=== PATIENT | female | born 1975 | race Caucasian/White ===

== ENCOUNTER → 2018-10-20 | Outpatient (CLI) | payer OTHER ==
[~2018-10-20] MED LIST: AMIT10TA2 OR; CELE1CAP4 OR; FLEXERIL PO; MAXA10TA17 OR; MULTIVIT OR; NASAL SPRAY; SKEL800T5 OR; SOMA250T OR; TRAM100T OR; TRAM50TA2 OR; zonisamide PO
--- NOTE | 2018-11-01 00:11 | ECWPNPC ---
PATIENT NAME: DEANA PATEL : 1975 GENDER: FEMALE VISIT DATE: 10/20/2018 DISCHARGE DATE: 10/20/18 1619 VISIT LOCKED DATE TIME: PHYSICIAN: SHERRI FERGUSON MD PHYSICIAN PAGER NO: [phone] RESOURCE: SHERRI FERGUSON MD REASON FOR APPOINTMENT 1. *PAIN RN NEW PATIENT CONSULT HISTORY OF PRESENT ILLNESS NEW PATIENT CONSULT: WHEN DID YOUR PAIN FIRST START? . BRIEFLY DESCRIBE HOW YOUR PAIN STARTED? . HOW DOES YOUR PAIN CHANGE WITH TIME? . DOES YOUR PAIN AWAKEN YOU FROM SLEEP? . HOW MANY HOURS OF SLEEP DO YOU NORMALLY GET? . ANY DIAGNOSTIC TESTING? . FACILITY WHERE TESTS WERE DONE? ____. PAIN TREATMENT TREATMENT YES CANCER HAVE YOU EVER HAD ANY TYPE OF CANCER?NO NO. PAIN SCREENING: PATIENT HAS A COMPLAINT OF ACUTE OR CHRONIC PAIN :YES 43 YEAR OLD FEMALE PATIENT WITH A HISTORY OF CHRONIC NECK PAIN. THE PATIENT DESCRIBES THE PAIN ACHING, SHARP, STABBING, SHOOTING, AND INTERMITTENT WITH A PAIN SCORE OF 7-10/10 DEPENDING ON PHYSICAL ACTIVITY. THE PATIENT SAYS THAT SHE HAS HAD THIS PAIN FOR YEARS AND IT HAS WORSENED OVER TIME. THE PATIENT SAYS HER PAIN RADIATES UP INTO HER HEAD CAUSING HEADACHES. THE PATIENT SAYS SHE HAS TRIED SEVERAL MEDICATIONS AND INJECTION THERAPY IN THE PAST, BUT HER PAIN HAS PERSISTED. PATIENT DENIES UNEXPLAINABLE WEIGHT LOSS, FEVER, CHILLS, NEW CHANGES ON HER URINARY OR BOWEL CONTROL. FALL RISK SCREENING: SCREENING : NO FALLS IN THE PAST YEAR. DIAZ INVENTORY: QUESTIONNAIRE ASSESSEDTBD SCORE VALUE CALCULATED TBD CURRENT MEDICATIONS TAKING ZONISAMIDE 100 MG CAPSULE 1 CAPSULE ORALLY ONCE A DAY TAKING ORPHENADRINE CITRATE ER 100 MG TABLET EXTENDED RELEASE 12 HOUR 1 TABLET ORALLY TWICE A DAY TAKING AMITRIPTYLINE HCL 10 MG TABLET 1 TABLET AT BEDTIME ORALLY ONCE A DAY TAKING MAXALT 10 MG TABLET 1 TABLET NEEDED ONE TIME ORALLY ONCE A DAY TAKING ELETRIPTAN HYDROBROMIDE 40 MG TABLET 1 TABLET NEEDED ONE TIME ORALLY ONCE A DAY MEDICATION LIST REVIEWED AND RECONCILED WITH THE PATIENT PAST MEDICAL HISTORY MIGRAINES ARTHRITIS CERVICAL BACK PAIN ALLERGIES N.K.D.A. SURGICAL HISTORY C SECTION 2000 FAMILY HISTORY FATHER: ALIVE 72 YRS MOTHER: ALIVE 67 YRS, HYPERTENSION, DIABETES SIBLINGS: ALIVE SON(S): ALIVE 18 YRS, AUTISM 1 SON(S) . SOCIAL HISTORY GENERAL: TOBACCO USE ARE YOU A:FORMER SMOKER PAIN CLINIC PFS, CLERGY, PUBLIC HEALTH REFERRALS PFS REFERRAL NEEDED?NO CLERGY REFERRAL NEEDED?NO PUBLIC HEALTH REFERRAL NEEDED?NO WAS THE PROVIDER NOTIFIED OF ANY PERTINENT INFO?NO HAS THE PATIENT BEEN EDUCATED REGARDING HIS/HER PLAN OF CARE?YES HAS THE PATIENT BEEN EDUCATED REGARDING PAIN, THE RISK FOR PAIN, THE IMPORTANCE OF EFFECTIVE PAIN MANAGEMENT, AND THE PAIN ASSESSMENT PROCESS?YES OTHERS AT HOME: SPOUSE, CHILD. ADVANCE DIRECTIVE ADVANCE DIRECTIVE DISCUSSED WITH PATIENT:YES PT DECLINES PRINTED MATERIAL HOUSING: OWNS HOME. EDUCATION LEVEL OF EDUCATION:HIGH SCHOOL DIET: REGULAR. LANGUAGE LANGUAGES SPOKEN:PASHTO MARITAL STATUS: . ALCOHOL SCREENING DID YOU HAVE A DRINK CONTAINING ALCOHOL IN THE PAST YEAR?YES HOW OFTEN DID YOU HAVE A DRINK CONTAINING ALCOHOL IN THE PAST YEAR?MONTHLY OR LESS (1 POINT) HOW MANY DRINKS DID YOU HAVE ON A TYPICAL DAY WHEN YOU WERE DRINKING IN THE PAST YEAR?1 OR 2 (0 POINTS) POINTS1 INTERPRETATIONNEGATIVE EXERCISE: DAILY, WALKS. 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 HOSPITALIZATION/MAJOR DIAGNOSTIC PROCEDURE NO HOSPITALIZATION HISTORY. REVIEW OF SYSTEMS REVIEWED BY: PROVIDER: SHERRI FERGUSON MD . CONSTITUTIONAL: ANY CHANGE IN YOUR MEDICAL CONDITION? NO . CHILLS NO . FEVER NO . INFECTION: DO YOU HAVE NEW INFECTIONS? NO . DO YOU HAVE HISTORY OF MRSA? NO . MUSCULOSKELETAL: ANY NEW PATTERNS OF PAIN OR NUMBNESS? INCREASED TENSION IN HEAD AND CAUSING TENSION HEADACHES . SYTEMIC LUPUS NO . GASTROENTEROLOGY: ANY NEW CHANGE IN BOWEL CONTROL? NO . BARRETTS ESOPHAGUS NO . CIRRHOSIS NO . HEPATITIS NO . LIVER FAILURE NO . ACID REFLUX NO . UNEXPLAINED WEIGHT LOSS NO . GENITOURINARY: ANY NEW CHANGE IN BLADDER CONTROL? NO . IS THERE A CHANCE YOU COULD BE ? NO . HEMATOLOGY/LYMPH: DO YOU TAKE ANY BLOOD THINNERS? (FOR EXAMPLE- COUMADIN, PLAVIX, AGGRENOX, PLATEL, PRADAXA, OR XARELTO) NO . WHEN WAS YOUR LAST DOSE? DATE: TIME: . LOW PLATELET COUNT NO . SICKLE CELL DISEASE NO . VON WILLIEBRANDS NO . FACTOR V LEIDEN NO . THALLASEMIA NO . ANEMIA NO . EASY BRUISING NO . NEUROLOGY: HAVE YOU FALLEN IN THE PAST 12 MONTHS? NO . ANY NEW EXTREMITY NUMBNESS OR WEAKNESS? NO . HEAD INJURY NO . DEMENTIA NO . CEREBRAL PALSY NO . MULTIPLE SCLEROSIS NO . DIZZINESS NO . HEADACHE NO . STROKES NO . VERTIGO NO . CARDIOLOGY: DO YOU HAVE A PACEMAKER OR DEFIBRILLATOR? NO . ANGINA NO . HEART ATTACK NO . HEART SURGERY NO . CONGESTIVE HEART FAILURE/FLUID OVERLOAD NO . CHEST PAIN NO . HIGH BLOOD PRESSURE NO . IRREGULAR HEART BEAT NO . RESPIRATORY: HAVE YOU BEEN SICK IN THE PAST WEEK? NO . FEVER NO . FLU LIKE SYMPTOMS? NO . CPAP NO . BYPAP NO . ASTHMA NO . EMPHYSEMA NO . CHRONIC LUNG DISEASES NO . SHORTNESS OF BREATH ON EXERTION NO . DO YOU USE ANY TYPE OF TOBACCO (SMOKE, SMOKELESS, CHEW)? NO . COUGH NO . SNORING NO . INTEGUMENTARY: DO YOU HAVE ANY RASHES OR OPEN SORES? NO . ALLERGIC/IMMUNO: ARE YOU ALLERGIC TO IV DYE? NO . ANY NEW ALLERGIES? NO . PSYCHIATRIC: DO YOU HAVE THOUGHTS OF HURTING YOURSELF OR SOMEONE ELSE? NO . ARE YOU ABUSED, NEGLECTED, OR IN AN UNSAFE ENVIRONMENT? NO . ENDOCRINOLOGY: ARE YOU DIABETIC? NO . THYROID DISORDER NO . OTHER: DO YOU NEED ANY PRESCRIPTIONS? NO . IF YES, PLEASE LIST: ____ . ANY NEW PROBLEMS WITH YOUR MEDICATIONS? NO . WHEN DID YOU LAST EAT? ____ . WHEN DID YOU LAST DRINK? ____ . WHAT DID YOU LAST DRINK? ____ . NAME OF PERSON DRIVING YOU HOME? ____ . DO YOU HAVE ANY OTHER QUESTIONS OR CONCERNS NO . EXAMINATION GENERAL EXAMINATION: PATIENT IS ALERT O X 3 AND COOPERATIVE. LUNGS CLEAR, TO AUSCULTATION. HEART: NO MURMURS OR GALLOPS; FACIAL CRANIAL NERVES ARE GROSSLY NORMAL. GOOD SYMMETRY OF FACIAL MUSCLE MOVEMENT. NORMAL VISUAL AVINA. PRESENCE OF TRIGGER POINTS AND BANDS OF TISSUE WITH RESTRICTION OF MOVEMENT OF THE NECK. PAIN INCREASES OVER THE CERVICAL FACET JOINTS WITH EXTENSION AND LATERAL ROTATION OF THE NECK MRI OF THE CERVICAL SPINE DONE ON 06/20/2018 SHOWS FACET ARTHROPATHY CHANGES AT MULTIPLE LEVELS. ASSESSMENTS MYALGIA, OTHER SITE - M79.18 (PRIMARY) SPONDYLOSIS OF CERVICAL REGION WITHOUT MYELOPATHY OR RADICULOPATHY - M47.812 TREATMENT MYALGIA, OTHER SITE CLINICAL NOTES: WE DISCUSSED SEVERAL ISSUES WITH MS. PATEL'S PAIN MANAGEMENT CASE. DUE TO THE TRIGGER POINTS, BANDS OF TISSUE, AND RESTRICTION OF MOVEMENT, I WOULD LIKE TO MOVE FORWARD WITH A TRIGGER POINT INJECTION AT THIS TIME. WE DISCUSSED THE BENEFITS, RISKS, AND ALTERNATIVES OF THE INJECTION AND THE PATIENT WOULD LIKE TO PROCEED. DEPENDING ON THE RESULTS OF THE INJECTION, THE PATIENT MAY TRY A DIAGNOSTIC LUMBAR FACET BLOCK TO CONSIDER RADIOFREQUENCY. THE PATIENT WILL FOLLOW UP A FEW WEEKS AFTER THE INJECTION. INSTRUCTIONS WERE GIVEN, QUESTIONS WERE ANSWERED, PATIENT REPORTS UNDERSTANDING AND AGREES WITH THE PLAN. I, COLBY TIMMONS, DOCUMENTED THE ABOVE INFORMATION ACTING A SCRIBE FOR DR. FERGUSON. I HAVE REVIEWED THE ABOVE DOCUMENT, WRITTEN BY COLBY TIMMONS SCRIBNeeraj AND I VERIFY THAT IT IS ACCURATE. DEAR COLTON MALDONADO PA-C:THANK YOU FOR YOUR KIND REFERRAL OF MS. PATEL. IF YOU WANT TO DISCUSS HER CASE WITH ME PLEASE CALL ME AT THE PAIN CENTER AT [phone]. SINCERELY,SHERRI FERGUSON, [facility] MEDICINE . OTHERS NOTES: TRIGGER POINT INJECTION: YOUR EXPERIENCE MATERIAL WAS PRINTED,TRIGGER POINT INJECTION MATERIAL WAS PRINTED. PREVENTIVE MEDICINE PAIN CLINIC TEACHING: MEDICATIONS PT GIVEN WRITTEN AND VERBAL EDUCATION ON TRIGGER POINT INJECTIONS. PT ALSO GIVEN WRITTEN AND VERBAL PRE-PROCEDURE INSTRUCTIONS. PT VERBALIZES UNDERSTANDING OF ALL INSTRUCTIONS AND EDUCATION. ANUSHKA GARZA 10/20/2018 4:19:36 PM > . PROCEDURE CODES FA211 ESTABILISHED PATIENT [facility] FACILITY CHARGE G8427 CURRENT MEDS W/DOSAGES DOCUMENTED G8730 PAIN ASSESS POS TOOL F/U PLAN DOC DISPOSITION & COMMUNICATION FOLLOW UP 3 WEEKS AFTER (REASON: TPI NECK) ELECTRONICALLY SIGNED BY SHERRI FERGUSON MD, MD ON 10/31/2018 AT 05:11 PM EDT DISCLAIMER : THIS IS A VISIT SUMMARY EXTRACTED FROM THE [employer] CHART. IT IS NOT A COPY OF THE [employer] PROGRESS NOTE. MTDD
== END ==
LOC: M PAIN 14:45
PROVIDERS: ATTEND Anesthesiology
DX: M79.18 Myalgia, other site (principal); M47.812 Spondylosis without myelopathy or radiculopathy, cervical region; G43.909 Migraine, unspecified, not intractable, without status migrainosus; Z87.891 Personal history of nicotine dependence; Z79.899 Other long term (current) drug therapy

== ENCOUNTER → 2018-12-02 | Outpatient (CLI) | payer OTHER ==
[~2018-12-02] MED LIST changes: +BUPIVACAINE HCL 0.25% 10 ML VIAL As Ordered ONE; +BUPIVACAINE HCL 0.25% 30 ML VIAL As Ordered ONE; +TRIAMCINOLONE ACETONIDE SUSP 40 MG/ML VIAL (J3301) As Ordered ONE
--- NOTE | 2018-12-12 00:49 | ECWPNPC ---
PATIENT NAME: DEANA PATEL : 1975 GENDER: FEMALE VISIT DATE: 12/02/2018 DISCHARGE DATE: 12/02/18 1325 VISIT LOCKED DATE TIME: PHYSICIAN: SHERRI FERGUSON MD RESOURCE: SHERRI FERGUSON MD REASON FOR APPOINTMENT 1. TPI HISTORY OF PRESENT ILLNESS HISTORY OF PRESENT ILLNESS: PAIN THE PATIENT DESCRIBES THE PAIN... FALL RISK SCREENING: SCREENING :NO FALLS REPORTED IN THE LAST YEAR CURRENT MEDICATIONS TAKING ZONISAMIDE 100 MG CAPSULE 1 CAPSULE ORALLY ONCE A DAY, NOTES: 12/01/18@2200 TAKING ORPHENADRINE CITRATE ER 100 MG TABLET EXTENDED RELEASE 12 HOUR 1 TABLET ORALLY TWICE A DAY, NOTES: 0800 TAKING AMITRIPTYLINE HCL 10 MG TABLET 1 TABLET AT BEDTIME ORALLY ONCE A DAY, NOTES: 12/01/18@2200 TAKING ELETRIPTAN HYDROBROMIDE 40 MG TABLET 1 TABLET NEEDED ONE TIME ORALLY ONCE A DAY, NOTES: 2 DAYS AGO TAKING MOBIC 7.5 MG TABLET 1 TABLET ORALLY ONCE A DAY, NOTES: 0800 NOT-TAKING MAXALT 10 MG TABLET 1 TABLET NEEDED ONE TIME ORALLY ONCE A DAY, NOTES: NONE RECENTLY MEDICATION LIST REVIEWED AND RECONCILED WITH THE PATIENT PAST MEDICAL HISTORY MIGRAINES ARTHRITIS CERVICAL BACK PAIN ALLERGIES N.K.D.A. SURGICAL HISTORY C SECTION 2000 FAMILY HISTORY FATHER: ALIVE 72 YRS MOTHER: ALIVE 67 YRS, HYPERTENSION, DIABETES SIBLINGS: ALIVE SON(S): ALIVE 18 YRS, AUTISM 1 SON(S) . SOCIAL HISTORY GENERAL: TOBACCO USE ARE YOU A:FORMER SMOKER OTHERS AT HOME: SPOUSE, CHILD. HOUSING: OWNS HOME. EDUCATION LEVEL OF EDUCATION:HIGH SCHOOL DIET: REGULAR. LANGUAGE LANGUAGES SPOKEN:SAMMARINESE RECREATIONAL DRUG USE DRUG USE?NO EXERCISE: DAILY, WALKS. LEARNING BARRIERS / SPECIAL NEEDS BARRIERS TO LEARNING?NO PAIN CLINIC PFS, CLERGY, PUBLIC HEALTH REFERRALS PFS REFERRAL NEEDED?NO CLERGY REFERRAL NEEDED?NO PUBLIC HEALTH REFERRAL NEEDED?NO WAS THE PROVIDER NOTIFIED OF ANY PERTINENT INFO?NO HAS THE PATIENT BEEN EDUCATED REGARDING HIS/HER PLAN OF CARE?YES HAS THE PATIENT BEEN EDUCATED REGARDING PAIN, THE RISK FOR PAIN, THE IMPORTANCE OF EFFECTIVE PAIN MANAGEMENT, AND THE PAIN ASSESSMENT PROCESS?YES LATEX QUESTIONNAIRE LATEX ALLERGY : HAVE YOU EVER DEVELOPED ANY TYPE OF REACTION AFTER HANDLING LATEX PRODUCTS SUCH RUBBER GLOVES, CONDOMS, DIAPHRAGMS, BALLOONS, SOCKS, OR UNDERWEAR?NO LATEX ALLERGY : HAVE YOU EVER DEVELOPED ANY TYPE OF REACTION DURING OR AFTER DENTAL APPOINTMENT, VAGINAL/RECTAL EXAMINATION, SURGICAL PROCEDURE, OR ANY OTHER EXPOSURE?NO LATEX RISK : HAVE YOU EVER HAD ANY DIFFICULTY BREATHING OR HIVES AFTER EATING OR HANDLING ANY FRUITS, OR VEGETABLES; SUCH KIWI, BANANAS, STONE FRUITS, OR CHESTNUTSNO LATEX RISK : DO YOU HAVE A PREVIOUS PERSONAL HISTORY OF MORE THAN NINE SURGERIES, SPINA BIFIDA, OR REPEATED CATHERIZATIONS? NO LATEX RISK : ARE YOU FREQUENTLY EXPOSED TO LATEX PRODUCTS IN YOUR OCCUPATION?NO DATE ASKED : 12/02/2018 CAFFEINE CAFFEINE USE?YES HOW OFTEN AND HOW MUCH? 2 CUPS OF COFFEE PER, SODAS 2-3 12 OZ ADVANCE DIRECTIVE ADVANCE DIRECTIVE DISCUSSED WITH PATIENT:YES PT DECLINES PRINTED MATERIAL [employer] NONE MARITAL STATUS: . 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 HOSPITALIZATION/MAJOR DIAGNOSTIC PROCEDURE NO HOSPITALIZATION HISTORY. REVIEW OF SYSTEMS REVIEWED BY: PROVIDER: . CONSTITUTIONAL: ANY CHANGE IN YOUR MEDICAL CONDITION? NO . CHILLS NO . FEVER NO . INFECTION: DO YOU HAVE NEW INFECTIONS? NO . DO YOU HAVE HISTORY OF MRSA? NO . MUSCULOSKELETAL: ANY NEW PATTERNS OF PAIN OR NUMBNESS? NO . GASTROENTEROLOGY: ANY NEW CHANGE IN BOWEL CONTROL? NO . GENITOURINARY: ANY NEW CHANGE IN BLADDER CONTROL? NO . IS THERE A CHANCE YOU COULD BE ? NO . HEMATOLOGY/LYMPH: DO YOU TAKE ANY BLOOD THINNERS? (FOR EXAMPLE- COUMADIN, PLAVIX, AGGRENOX, PLATEL, PRADAXA, OR XARELTO) NO . WHEN WAS YOUR LAST DOSE? DATE: TIME: . NEUROLOGY: HAVE YOU FALLEN IN THE PAST 12 MONTHS? NO . ANY NEW EXTREMITY NUMBNESS OR WEAKNESS? NO . CARDIOLOGY: DO YOU HAVE A PACEMAKER OR DEFIBRILLATOR? NO . RESPIRATORY: HAVE YOU BEEN SICK IN THE PAST WEEK? NO . FEVER NO . FLU LIKE SYMPTOMS? NO . COUGH NO . INTEGUMENTARY: DO YOU HAVE ANY RASHES OR OPEN SORES? NO . ALLERGIC/IMMUNO: ARE YOU ALLERGIC TO IV DYE? NO . ANY NEW ALLERGIES? NO . PSYCHIATRIC: DO YOU HAVE THOUGHTS OF HURTING YOURSELF OR SOMEONE ELSE? NO . ARE YOU ABUSED, NEGLECTED, OR IN AN UNSAFE ENVIRONMENT? NO . ENDOCRINOLOGY: ARE YOU DIABETIC? NO . OTHER: DO YOU NEED ANY PRESCRIPTIONS? NO . IF YES, PLEASE LIST: ____ . ANY NEW PROBLEMS WITH YOUR MEDICATIONS? NO . WHEN DID YOU LAST EAT? 12-01-18 1900 . WHEN DID YOU LAST DRINK? 12-02-18 0800 . WHAT DID YOU LAST DRINK? APPLE JUICE . NAME OF PERSON DRIVING YOU HOME? ANALI ANDRIA . DO YOU HAVE ANY OTHER QUESTIONS OR CONCERNS NO . VITAL SIGNS WT 158.0 LBS, HT 66.75 IN, BMI 24.93 INDEX, BP 108/65 MM HG, HR 79 /MIN, RR 18 /MIN, TEMP 98.3 F, OXYGEN SAT % 99%, NA INITIALS SC 11:01, REVIEWED BY: LS. ASSESSMENTS MYALGIA, OTHER SITE - M79.18 (PRIMARY) PROCEDURES PN TRIGGER POINT INJECTION WITH STEROIDS PRE PROCEDURE DIAGNOSIS 1. MYALGIA 2. PAIN AT BILATERAL NECK AREA AND BILATERAL SHOULDER AREA POST PROCEDURE DIAGNOSIS 1. MYALGIA 2. PAIN AT BILATERAL NECK AREA AND BILATERAL SHOULDER AREA PROCEDURE TRIGGER POINT INJECTION AT BILATERAL NECK AREA AND BILATERAL SHOULDER AREA SURGEON DR. SHERRI FERGUSON CASHIER TUBE ROOM NONE ANESTHESIA LOCAL PRE PROCEDURE NOTE THE PATIENT HAS A HISTORY OF CHRONIC PAIN AT THE RIGHT AND LEFT NECK AREA AND RIGHT AND LEFT SHOULDER AREA. I EVALUATE THE PATIENT AND REVIEWED THE CHART. THERE IS EVIDENCE OF BANDS OF TISSUE WITH RESTRICTION OF MOVEMENT AND PRESENCE OF TRIGGER POINT AT THE AFFECTED AREA. I WENT OVER THE RISKS, ALTERNATIVES, AND BENEFITS ASSOCIATED WITH THIS PROCEDURE. THE PATIENT WOULD LIKE TO PROCEED AND GIVE CONSENT TO PERFORMED THE PROCEDURE. THE PATIENT DENIES UNEXPLAINABLE WEIGHT LOSS, FEVER, CHILLS, OR NEW CHANGES IN URINARY OR BOWEL CONTROL DESCRIPTION OF PROCEDURE THE PATIENT WAS BROUGHT TO THE PROCEDURE ROOM AND PLACED IN THE SITTING POSITION. THE AREA WAS CLEANED WITH ALCOHOL. THE PROCEDURE WAS DONE USING ASEPTIC STERILE TECHNIQUE. I CHECKED LATERALITY AND THE LEVEL WHERE THE PROCEDURE WAS GOING TO BE PERFORMED WITH THE PATIENT AND THE SUPPORTING STAFF AT THE MOMENT OF THE TIME OUT IN THE PROCEDURE ROOM. USING A 25-GAUGE NEEDLE, TRIGGER POINTS WERE INJECTED AT THE RIGHT AND LEFT NECK AREA AND RIGHT AND LEFT SHOULDER AREA WITH A TOTAL OF 40 ML OF BUPIVACAINE 0.25% AND KENALOG 40 MG. THERE WAS NO EVIDENCE OF BLOOD, PARESTHESIA OR CEREBROSPINAL FLUID DURING THE PROCEDURE. THE PATIENT WAS SENT TO THE RECOVERY ROOM. THE PATIENT WAS MOVING THE EXTREMITIES AND DOING WELL. THERE WAS NO COMPLICATION DURING THE PROCEDURE POST PROCEDURE NOTE THE PATIENT WILL BE SEEN IN A FOLLOW UP IN THE NEXT FEW WEEKS. INSTRUCTIONS WERE GIVEN, QUESTIONS WERE ANSWERED, AND THE PATIENT EXPRESSED UNDERSTANDING AND AGREES WITH THE PLAN. I, COLBY TIMMONS, DOCUMENTED THE ABOVE INFORMATION ACTING A SCRIBE FOR DR. FERGUSON. I HAVE REVIEWED THE ABOVE DOCUMENT, WRITTEN BY COLBY DE PAZ AND I VERIFY THAT IT IS ACCURATE. PROCEDURE CODES 59617 INJECT TRIGGER POINTS 3/> DISPOSITION & COMMUNICATION FOLLOW UP 3 WEEKS ELECTRONICALLY SIGNED BY SHERRI FERGUSON MD, MD ON 12/11/2018 AT 01:58 PM EDT DISCLAIMER : THIS IS A VISIT SUMMARY EXTRACTED FROM THE [employer] CHART. IT IS NOT A COPY OF THE [employer] PROGRESS NOTE. SIA
== END ==
LOC: M PAIN 11:15
PROVIDERS: ATTEND Anesthesiology
DX: M79.18 Myalgia, other site (principal); G43.909 Migraine, unspecified, not intractable, without status migrainosus; M50.30 Other cervical disc degeneration, unspecified cervical region; Z87.891 Personal history of nicotine dependence; Z79.1 Long term (current) use of non-steroidal anti-inflammatories (NSAID); Z79.899 Other long term (current) drug therapy
CPT/HCPCS: 20553; J3301

== ENCOUNTER → 2018-12-28 | Outpatient (CLI) | payer OTHER ==
[~2018-12-28] MED LIST changes: -BUPIVACAINE HCL 0.25% 10 ML VIAL As Ordered ONE; -BUPIVACAINE HCL 0.25% 30 ML VIAL As Ordered ONE; -TRIAMCINOLONE ACETONIDE SUSP 40 MG/ML VIAL (J3301) As Ordered ONE
--- NOTE | 2018-12-30 01:40 | ECWPNPC ---
PATIENT NAME: DEANA PATEL : 1975 GENDER: FEMALE VISIT DATE: 12/28/2018 DISCHARGE DATE: 12/28/18 1525 VISIT LOCKED DATE TIME: PHYSICIAN: KARTHIKEYAN WALKER RESOURCE: KARTHIKEYAN WALKER REASON FOR APPOINTMENT 1. POST TPI HISTORY OF PRESENT ILLNESS HISTORY OF PRESENT ILLNESS: PAIN THE PATIENT DESCRIBES THE PAIN... 43 YEAR OLD FEMALE IN FOR POST TPI FOLLOW UP. SHE FEELS THE PROCEDURE WENT WELL AND RATES HER PAIN AT A 2/10 CURRENTLY. SHE DESCRIBES HER PAIN ACHING, SHARP, STABBING, SORE, AND TENDER. FALL RISK SCREENING: SCREENING :NO FALLS REPORTED IN THE LAST YEAR CURRENT MEDICATIONS TAKING ZONISAMIDE 100 MG CAPSULE 1 CAPSULE ORALLY ONCE A DAY TAKING ORPHENADRINE CITRATE ER 100 MG TABLET EXTENDED RELEASE 12 HOUR 1 TABLET ORALLY TWICE A DAY TAKING AMITRIPTYLINE HCL 10 MG TABLET 1 TABLET AT BEDTIME ORALLY ONCE A DAY TAKING ELETRIPTAN HYDROBROMIDE 40 MG TABLET 1 TABLET NEEDED ONE TIME ORALLY ONCE A DAY TAKING MOBIC 7.5 MG TABLET 1 TABLET ORALLY ONCE A DAY TAKING MAXALT 10 MG TABLET 1 TABLET NEEDED ONE TIME ORALLY ONCE A DAY MEDICATION LIST REVIEWED AND RECONCILED WITH THE PATIENT PAST MEDICAL HISTORY MIGRAINES ARTHRITIS CERVICAL BACK PAIN ALLERGIES N.K.D.A. SURGICAL HISTORY C SECTION 2000 FAMILY HISTORY FATHER: ALIVE 72 YRS MOTHER: ALIVE 67 YRS, HYPERTENSION, DIABETES SIBLINGS: ALIVE SON(S): ALIVE 18 YRS, AUTISM 1 SON(S) . SOCIAL HISTORY GENERAL: TOBACCO USE ARE YOU A:FORMER SMOKER OTHERS AT HOME: SPOUSE, CHILD. HOUSING: OWNS HOME. EDUCATION LEVEL OF EDUCATION:HIGH SCHOOL DIET: REGULAR. LANGUAGE LANGUAGES SPOKEN:CONGOLESE RECREATIONAL DRUG USE DRUG USE?NO EXERCISE: DAILY, WALKS. LEARNING BARRIERS / SPECIAL NEEDS BARRIERS TO LEARNING?NO PAIN CLINIC PFS, CLERGY, PUBLIC HEALTH REFERRALS PFS REFERRAL NEEDED?NO CLERGY REFERRAL NEEDED?NO PUBLIC HEALTH REFERRAL NEEDED?NO WAS THE PROVIDER NOTIFIED OF ANY PERTINENT INFO?NO HAS THE PATIENT BEEN EDUCATED REGARDING HIS/HER PLAN OF CARE?YES HAS THE PATIENT BEEN EDUCATED REGARDING PAIN, THE RISK FOR PAIN, THE IMPORTANCE OF EFFECTIVE PAIN MANAGEMENT, AND THE PAIN ASSESSMENT PROCESS?YES LATEX QUESTIONNAIRE LATEX ALLERGY : HAVE YOU EVER DEVELOPED ANY TYPE OF REACTION AFTER HANDLING LATEX PRODUCTS SUCH RUBBER GLOVES, CONDOMS, DIAPHRAGMS, BALLOONS, SOCKS, OR UNDERWEAR?NO LATEX ALLERGY : HAVE YOU EVER DEVELOPED ANY TYPE OF REACTION DURING OR AFTER DENTAL APPOINTMENT, VAGINAL/RECTAL EXAMINATION, SURGICAL PROCEDURE, OR ANY OTHER EXPOSURE?NO LATEX RISK : HAVE YOU EVER HAD ANY DIFFICULTY BREATHING OR HIVES AFTER EATING OR HANDLING ANY FRUITS, OR VEGETABLES; SUCH KIWI, BANANAS, STONE FRUITS, OR CHESTNUTSNO LATEX RISK : DO YOU HAVE A PREVIOUS PERSONAL HISTORY OF MORE THAN NINE SURGERIES, SPINA BIFIDA, OR REPEATED CATHERIZATIONS? NO LATEX RISK : ARE YOU FREQUENTLY EXPOSED TO LATEX PRODUCTS IN YOUR OCCUPATION?NO DATE ASKED : 12/02/2018 CAFFEINE CAFFEINE USE?YES HOW OFTEN AND HOW MUCH? 2 CUPS OF COFFEE PER, SODAS 2-3 12 OZ ADVANCE DIRECTIVE ADVANCE DIRECTIVE DISCUSSED WITH PATIENT:YES PT DECLINES PRINTED MATERIAL ANABAPTISM ANABAPTISM NONE MARITAL STATUS: . 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 HOSPITALIZATION/MAJOR DIAGNOSTIC PROCEDURE C SECTION REVIEW OF SYSTEMS REVIEWED BY: PROVIDER: ELIEZER WALKER MOHS SURGEON/GENERAL DERMATOLOGIST-C . CONSTITUTIONAL: ANY CHANGE IN YOUR MEDICAL CONDITION? NO . CHILLS NO . FEVER NO . INFECTION: DO YOU HAVE NEW INFECTIONS? NO . DO YOU HAVE HISTORY OF MRSA? NO . MUSCULOSKELETAL: ANY NEW PATTERNS OF PAIN OR NUMBNESS? NO . GASTROENTEROLOGY: ANY NEW CHANGE IN BOWEL CONTROL? NO . GENITOURINARY: ANY NEW CHANGE IN BLADDER CONTROL? NO . IS THERE A CHANCE YOU COULD BE ? NO . HEMATOLOGY/LYMPH: DO YOU TAKE ANY BLOOD THINNERS? (FOR EXAMPLE- COUMADIN, PLAVIX, AGGRENOX, PLATEL, PRADAXA, OR XARELTO) NO . WHEN WAS YOUR LAST DOSE? DATE: TIME: . NEUROLOGY: HAVE YOU FALLEN IN THE PAST 12 MONTHS? NO . ANY NEW EXTREMITY NUMBNESS OR WEAKNESS? NO . CARDIOLOGY: DO YOU HAVE A PACEMAKER OR DEFIBRILLATOR? NO . RESPIRATORY: HAVE YOU BEEN SICK IN THE PAST WEEK? NO . FEVER NO . FLU LIKE SYMPTOMS? NO . COUGH NO . INTEGUMENTARY: DO YOU HAVE ANY RASHES OR OPEN SORES? NO . ALLERGIC/IMMUNO: ARE YOU ALLERGIC TO IV DYE? NO . ANY NEW ALLERGIES? NO . PSYCHIATRIC: DO YOU HAVE THOUGHTS OF HURTING YOURSELF OR SOMEONE ELSE? NO . ARE YOU ABUSED, NEGLECTED, OR IN AN UNSAFE ENVIRONMENT? NO . ENDOCRINOLOGY: ARE YOU DIABETIC? NO . OTHER: DO YOU NEED ANY PRESCRIPTIONS? NO . IF YES, PLEASE LIST: ____ . ANY NEW PROBLEMS WITH YOUR MEDICATIONS? NO . WHEN DID YOU LAST EAT? ____ . WHEN DID YOU LAST DRINK? ____ . WHAT DID YOU LAST DRINK? ____ . NAME OF PERSON DRIVING YOU HOME? ____ . DO YOU HAVE ANY OTHER QUESTIONS OR CONCERNS NO . VITAL SIGNS WT 160.2 LBS, HT 66.75 IN, BMI 25.28 INDEX, BP 121/64 MM HG, HR 81 /MIN, RR 18 /MIN, TEMP 96.9 F, OXYGEN SAT % 98%, NA INITIALS AW 1440, REVIEWED BY: WILMER. EXAMINATION GENERAL EXAMINATION: GENERALNO ACUTE DISTRESS, WELL NOURISHED AND HYDRATED. PSYCHAPPROPRIATE MOOD AND AFFECT . NECK:POINT TENDER ALONG NECK AND SHOULDERS, SURROUNDING SKIN SHOWS NO ERYTHEMA, ECCHYMOSIS, INCREASED WARMTH, AND OR SKIN ERUPTIONS.. LUNGS:CLEAR TO AUSCULTATION BILATERALLY, NO WHEEZES, RHONCHI, RALES. HEART:NO MURMURS, REGULAR RATE AND RHYTHM. ASSESSMENTS MYALGIA, OTHER SITE - M79.18 (PRIMARY) TREATMENT MYALGIA, OTHER SITE NOTES: BILATERAL TPI OF NECK AND SHOULDERS. CLINICAL NOTES: 43 YEAR OLD FEMALE IN FOR POST TPI FOLLOW UP. GIVEN PRESENTING SYMPTOMS AND RESULTS OF PHYSICAL EXAMINATION RECOMMENDED REPEAT TPI WITH FOLLOW UP. PATIENT HAS EXPRESSED UNDERSTANDING OF AND WAS IN AGREEMENT WITH TREATMENT PLAN. GIVEN TIME TO ASK QUESTIONS AND EXPRESS CONCERNS. PATIENT HAS EXPRESSED UNDERSTANDING OF AND WAS IN AGREEMENT WITH TREATMENT PLAN. GIVEN TIME TO ASK QUESTIONS AND EXPRESS CONCERNS. PROCEDURE CODES FA211 ESTABILISHED PATIENT [facility] CHARGE DISPOSITION & COMMUNICATION FOLLOW UP POST PROCEDURE (REASON: BILATERAL TPI OF NECK AND SHOULDERS) ELECTRONICALLY SIGNED BY THALIA GARAY ON 12/29/2018 AT 01:31 PM EDT DISCLAIMER : THIS IS A VISIT SUMMARY EXTRACTED FROM THE [employer] CHART. IT IS NOT A COPY OF THE [employer] PROGRESS NOTE. MTDD
== END ==
LOC: M PAIN 14:30
PROVIDERS: ATTEND Family Medicine
DX: M79.18 Myalgia, other site (principal); G43.909 Migraine, unspecified, not intractable, without status migrainosus; Z87.891 Personal history of nicotine dependence; Z79.1 Long term (current) use of non-steroidal anti-inflammatories (NSAID); Z79.899 Other long term (current) drug therapy

== ENCOUNTER → 2019-02-02 | Outpatient (CLI) | payer OTHER ==
[~2019-02-02] MED LIST changes: +BUPIVACAINE HCL 0.25% 10 ML VIAL As Ordered ONE; +BUPIVACAINE HCL 0.25% 30 ML VIAL As Ordered ONE; +TRIAMCINOLONE ACETONIDE SUSP 40 MG/ML VIAL (J3301) As Ordered ONE
--- NOTE | 2019-02-13 01:24 | ECWPNPC ---
PATIENT NAME: DEANA PATEL : 1975 GENDER: FEMALE VISIT DATE: 02/02/2019 DISCHARGE DATE: 02/02/19 1513 VISIT LOCKED DATE TIME: PHYSICIAN: SHERRI FERGUSON MD RESOURCE: SHERRI FERGUSON MD REASON FOR APPOINTMENT 1. BILATERAL TPI OF NECK AND SHOULDERS HISTORY OF PRESENT ILLNESS HISTORY OF PRESENT ILLNESS: PAIN THE PATIENT DESCRIBES THE PAIN... FALL RISK SCREENING: SCREENING :NO FALLS REPORTED IN THE LAST YEAR CURRENT MEDICATIONS TAKING ZONISAMIDE 100 MG CAPSULE 1 CAPSULE ORALLY ONCE A DAY TAKING ORPHENADRINE CITRATE ER 100 MG TABLET EXTENDED RELEASE 12 HOUR 1 TABLET ORALLY TWICE A DAY, NOTES: 02/02/19 AM TAKING AMITRIPTYLINE HCL 10 MG TABLET 1 TABLET AT BEDTIME ORALLY ONCE A DAY TAKING ELETRIPTAN HYDROBROMIDE 40 MG TABLET 1 TABLET NEEDED ONE TIME ORALLY ONCE A DAY TAKING MOBIC 7.5 MG TABLET 1 TABLET ORALLY ONCE A DAY, NOTES: 02/02/19 AM TAKING MAXALT 10 MG TABLET 1 TABLET NEEDED ONE TIME ORALLY ONCE A DAY MEDICATION LIST REVIEWED AND RECONCILED WITH THE PATIENT PAST MEDICAL HISTORY MIGRAINES ARTHRITIS CERVICAL BACK PAIN ALLERGIES N.K.D.A. SURGICAL HISTORY C SECTION 2000 FAMILY HISTORY FATHER: ALIVE 72 YRS MOTHER: ALIVE 67 YRS, HYPERTENSION, DIABETES SIBLINGS: ALIVE SON(S): ALIVE 18 YRS, AUTISM 1 SON(S) . SOCIAL HISTORY GENERAL: TOBACCO USE ARE YOU A:FORMER SMOKER OTHERS AT HOME: SPOUSE, CHILD. HOUSING: OWNS HOME. EDUCATION LEVEL OF EDUCATION:HIGH SCHOOL DIET: REGULAR. LANGUAGE LANGUAGES SPOKEN:HAITIAN RECREATIONAL DRUG USE DRUG USE?NO EXERCISE: DAILY, WALKS. LEARNING BARRIERS / SPECIAL NEEDS BARRIERS TO LEARNING?NO PAIN CLINIC PFS, CLERGY, PUBLIC HEALTH REFERRALS PFS REFERRAL NEEDED?NO CLERGY REFERRAL NEEDED?NO PUBLIC HEALTH REFERRAL NEEDED?NO WAS THE PROVIDER NOTIFIED OF ANY PERTINENT INFO?NO HAS THE PATIENT BEEN EDUCATED REGARDING HIS/HER PLAN OF CARE?YES HAS THE PATIENT BEEN EDUCATED REGARDING PAIN, THE RISK FOR PAIN, THE IMPORTANCE OF EFFECTIVE PAIN MANAGEMENT, AND THE PAIN ASSESSMENT PROCESS?YES LATEX QUESTIONNAIRE LATEX ALLERGY : HAVE YOU EVER DEVELOPED ANY TYPE OF REACTION AFTER HANDLING LATEX PRODUCTS SUCH RUBBER GLOVES, CONDOMS, DIAPHRAGMS, BALLOONS, SOCKS, OR UNDERWEAR?NO LATEX ALLERGY : HAVE YOU EVER DEVELOPED ANY TYPE OF REACTION DURING OR AFTER DENTAL APPOINTMENT, VAGINAL/RECTAL EXAMINATION, SURGICAL PROCEDURE, OR ANY OTHER EXPOSURE?NO DATE ASKED : 12/02/2018 LATEX RISK : HAVE YOU EVER HAD ANY DIFFICULTY BREATHING OR HIVES AFTER EATING OR HANDLING ANY FRUITS, OR VEGETABLES; SUCH KIWI, BANANAS, STONE FRUITS, OR CHESTNUTSNO LATEX RISK : DO YOU HAVE A PREVIOUS PERSONAL HISTORY OF MORE THAN NINE SURGERIES, SPINA BIFIDA, OR REPEATED CATHERIZATIONS? NO LATEX RISK : ARE YOU FREQUENTLY EXPOSED TO LATEX PRODUCTS IN YOUR OCCUPATION?NO CAFFEINE CAFFEINE USE?YES HOW OFTEN AND HOW MUCH? 2 CUPS OF COFFEE PER, SODAS 2-3 12 OZ ADVANCE DIRECTIVE ADVANCE DIRECTIVE DISCUSSED WITH PATIENT:YES PT DECLINES PRINTED MATERIAL MORMONISM MORMONISM NONE MARITAL STATUS: . 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 HOSPITALIZATION/MAJOR DIAGNOSTIC PROCEDURE C SECTION REVIEW OF SYSTEMS REVIEWED BY: PROVIDER: . CONSTITUTIONAL: ANY CHANGE IN YOUR MEDICAL CONDITION? NO . CHILLS NO . FEVER NO . INFECTION: DO YOU HAVE NEW INFECTIONS? NO . DO YOU HAVE HISTORY OF MRSA? NO . MUSCULOSKELETAL: ANY NEW PATTERNS OF PAIN OR NUMBNESS? NO . GASTROENTEROLOGY: ANY NEW CHANGE IN BOWEL CONTROL? NO . GENITOURINARY: ANY NEW CHANGE IN BLADDER CONTROL? NO . IS THERE A CHANCE YOU COULD BE ? NO . HEMATOLOGY/LYMPH: DO YOU TAKE ANY BLOOD THINNERS? (FOR EXAMPLE- COUMADIN, PLAVIX, AGGRENOX, PLATEL, PRADAXA, OR XARELTO) NO . WHEN WAS YOUR LAST DOSE? DATE: TIME: . NEUROLOGY: HAVE YOU FALLEN IN THE PAST 12 MONTHS? NO . ANY NEW EXTREMITY NUMBNESS OR WEAKNESS? NO . CARDIOLOGY: DO YOU HAVE A PACEMAKER OR DEFIBRILLATOR? NO . RESPIRATORY: HAVE YOU BEEN SICK IN THE PAST WEEK? NO . FEVER NO . FLU LIKE SYMPTOMS? NO . COUGH NO . INTEGUMENTARY: DO YOU HAVE ANY RASHES OR OPEN SORES? NO . ALLERGIC/IMMUNO: ARE YOU ALLERGIC TO IV DYE? NO . ANY NEW ALLERGIES? NO . PSYCHIATRIC: DO YOU HAVE THOUGHTS OF HURTING YOURSELF OR SOMEONE ELSE? NO . ARE YOU ABUSED, NEGLECTED, OR IN AN UNSAFE ENVIRONMENT? NO . ENDOCRINOLOGY: ARE YOU DIABETIC? NO . OTHER: DO YOU NEED ANY PRESCRIPTIONS? NO . IF YES, PLEASE LIST: ____ . ANY NEW PROBLEMS WITH YOUR MEDICATIONS? NO . WHEN DID YOU LAST EAT? 02/01/19 1930 . WHEN DID YOU LAST DRINK? 02/02/19 1200 . WHAT DID YOU LAST DRINK? WATER . NAME OF PERSON DRIVING YOU HOME? DEMETRIUS . DO YOU HAVE ANY OTHER QUESTIONS OR CONCERNS NO . VITAL SIGNS WT 161.2 LBS, HT 66.75 IN, BMI 25.43 INDEX, BP 115/57 MM HG, HR 80 /MIN, RR 18 /MIN, TEMP 96.8 F, OXYGEN SAT % 98%, NA INITIALS SC 14:12, REVIEWED BY: ASSESSMENTS MYALGIA, OTHER SITE - M79.18 (PRIMARY) TREATMENT OTHERS START KETOROLAC TROMETHAMINE TABLET, 10 MG, 1 TABLET WITH FOOD OR MILK NEEDED, ORALLY PRN FOR POST PROCEDURE PAIN, EVERY 8 HRS MDD2, 2 DAYS, 4, REFILLS 0 PROCEDURES PN TRIGGER POINT INJECTION WITH STEROIDS PRE PROCEDURE DIAGNOSIS 1. MYALGIA 2. PAIN AT BILATERAL NECK AND BILATERAL SHOULDER AREA POST PROCEDURE DIAGNOSIS 1. MYALGIA 2. PAIN AT BILATERAL NECK AND BILATERAL SHOULDER AREA PROCEDURE TRIGGER POINT INJECTION AT RIGHT AND LEFT NECK AREA AND RIGHT AND LEFT SHOULDER AREA SURGEON DR. SHERRI FERGUSON ASTHMA EDUCATOR NONE ANESTHESIA LOCAL PRE PROCEDURE NOTE THE PATIENT HAS A HISTORY OF CHRONIC PAIN AT THE RIGHT AND LEFT NECK AND RIGHT AND LEFT SHOULDER AREA. I EVALUATED THE PATIENT AND REVIEWED THE CHART. THERE IS EVIDENCE OF BANDS OF TISSUE WITH RESTRICTION OF MOVEMENT AND PRESENCE OF TRIGGER POINT AT THE AFFECTED AREA. I WENT OVER THE RISKS, ALTERNATIVES, AND BENEFITS ASSOCIATED WITH THIS PROCEDURE. THE PATIENT WOULD LIKE TO PROCEED AND GIVE CONSENT TO PERFORMED THE PROCEDURE. THE PATIENT DENIES UNEXPLAINABLE WEIGHT LOSS, FEVER, CHILLS, OR NEW CHANGES IN URINARY OR BOWEL CONTROL DESCRIPTION OF PROCEDURE THE PATIENT WAS BROUGHT TO THE PROCEDURE ROOM AND PLACED IN THE SITTING POSITION. THE AREA WAS CLEANED WITH ALCOHOL. THE PROCEDURE WAS DONE USING ASEPTIC STERILE TECHNIQUE. I CHECKED LATERALITY AND THE LEVEL WHERE THE PROCEDURE WAS GOING TO BE PERFORMED WITH THE PATIENT AND THE SUPPORTING STAFF AT THE MOMENT OF THE TIME OUT IN THE PROCEDURE ROOM. USING A 25-GAUGE NEEDLE, TRIGGER POINTS WERE INJECTED AT THE RIGHT AND LEFT NECK AND RIGHT AND LEFT SHOULDER AREA WITH A TOTAL OF 40 ML OF BUPIVACAINE 0.25% AND KENALOG 40 MG. THERE WAS NO EVIDENCE OF BLOOD, PARESTHESIA OR CEREBROSPINAL FLUID DURING THE PROCEDURE. THE PATIENT WAS SENT TO THE RECOVERY ROOM. THE PATIENT WAS MOVING THE EXTREMITIES AND DOING WELL. THERE WAS NO COMPLICATION DURING THE PROCEDURE POST PROCEDURE NOTE THE PATIENT WILL BE SEEN IN A FOLLOW UP IN THE NEXT FEW WEEKS. INSTRUCTIONS WERE GIVEN, QUESTIONS WERE ANSWERED, AND THE PATIENT EXPRESSED UNDERSTANDING AND AGREES WITH THE PLAN. I, COLTON BARROS, DOCUMENTED THE ABOVE INFORMATION ACTING A SCRIBE FOR DR. FERGUSON. I HAVE REVIEWED THE ABOVE DOCUMENT, WRITTEN BY COLTON DE PAZ AND I VERIFY THAT IT IS ACCURATE. PROCEDURE CODES 79492 INJECT TRIGGER POINTS 3/> DISPOSITION & COMMUNICATION FOLLOW UP 3 WEEKS ELECTRONICALLY SIGNED BY SHERRI FERGUSON MD, MD ON 02/12/2019 AT 12:56 PM EDT DISCLAIMER : THIS IS A VISIT SUMMARY EXTRACTED FROM THE [employer] CHART. IT IS NOT A COPY OF THE [employer] PROGRESS NOTE. SIA
== END ==
LOC: M PAIN 14:00
PROVIDERS: ATTEND Anesthesiology
DX: M79.18 Myalgia, other site (principal); G43.909 Migraine, unspecified, not intractable, without status migrainosus; M46.92 Unspecified inflammatory spondylopathy, cervical region; Z87.891 Personal history of nicotine dependence; Z79.1 Long term (current) use of non-steroidal anti-inflammatories (NSAID); Z79.899 Other long term (current) drug therapy
CPT/HCPCS: 20553; J3301

== ENCOUNTER → 2019-03-31 | Outpatient (CLI) | payer OTHER ==
[~2019-03-31] MED LIST changes: -BUPIVACAINE HCL 0.25% 10 ML VIAL As Ordered ONE; -BUPIVACAINE HCL 0.25% 30 ML VIAL As Ordered ONE; -TRIAMCINOLONE ACETONIDE SUSP 40 MG/ML VIAL (J3301) As Ordered ONE
== END ==
LOC: M PAIN 14:15
PROVIDERS: ATTEND Family Medicine
DX: M79.18 Myalgia, other site (principal); Z53.21 Procedure and treatment not carried out due to patient leaving prior to being seen by health care provider

== ENCOUNTER → 2019-06-21 | Outpatient (CLI) | payer OTHER, MEDICAID ==
--- NOTE | 2019-06-23 01:35 | ECWPNPC ---
PATIENT NAME: DEANA PATEL : 1975 GENDER: FEMALE VISIT DATE: 06/21/2019 DISCHARGE DATE: 06/21/19 1458 VISIT LOCKED DATE TIME: PHYSICIAN: KARTHIKEYAN WALKER RESOURCE: KARTHIKEYAN WALKER REASON FOR APPOINTMENT 1. NECK/BACK/MEDS HISTORY OF PRESENT ILLNESS HISTORY OF PRESENT ILLNESS: PAIN THE PATIENT DESCRIBES THE PAIN... 44 OLD FEMALE IN FOR CHRONIC PAIN FOLLOW-UP. SHE RATES HER PAIN CURRENTLY AT 3 OUT OF 10 AND DESCRIBES IT ACHING, SHARP, STABBING, SORE, AND TENDER. AT LAST CLINIC VISIT SHE WAS STARTED ON BACLOFEN AND ADMITS SHE DISCONTINUED USE IT WAS BEING HER DIZZY. SHE FURTHER STATES THAT THE PROVIDER AT HER NEUROLOGIST OFFICE STARTED ON TIZANIDINE AND SHE STARTED IT COUPLE DAYS AGO AND FEELS THIS HAS BEEN HELPFUL. FALL RISK SCREENING: SCREENING :NO FALLS REPORTED IN THE LAST YEAR CURRENT MEDICATIONS TAKING ZONISAMIDE 100 MG CAPSULE 1 CAPSULE ORALLY ONCE A DAY TAKING AMITRIPTYLINE HCL 10 MG TABLET 1 TABLET AT BEDTIME ORALLY ONCE A DAY TAKING MOBIC 15 MG TABLET 1 TABLET ORALLY ONCE A DAY TAKING MAXALT 10 MG TABLET 1 TABLET NEEDED ONE TIME ORALLY ONCE A DAY TAKING TIZANIDINE HCL 2 MG TABLET 1 TABLET NEEDED ORALLY TWO TIMES A DAY NOT-TAKING BACLOFEN 10 MG TABLET 0.5 TABLET TID X 5 DAYS THEN1 TABLET WITH FOOD OR MILK ORALLY THREE TIMES A DAY NOT-TAKING KETOROLAC TROMETHAMINE 10 MG TABLET 1 TABLET WITH FOOD OR MILK NEEDED ORALLY PRN FOR POST PROCEDURE PAIN EVERY 8 HRS MDD2 NOT-TAKING ELETRIPTAN HYDROBROMIDE 40 MG TABLET 1 TABLET NEEDED ONE TIME ORALLY ONCE A DAY NOT-TAKING ORPHENADRINE CITRATE ER 100 MG TABLET EXTENDED RELEASE 12 HOUR TAKE ONE TABLET BY MOUTH TWICE A DAY NEEDED MAXIMUM DAILY DOSE TWO TABLETS ORAL MEDICATION LIST REVIEWED AND RECONCILED WITH THE PATIENT PAST MEDICAL HISTORY MIGRAINES ARTHRITIS CERVICAL BACK PAIN CHROINC PAIN SYNDROME PAIN IN JOINT, MULTILPE SITES OTHER MALAISE AND FATIGUE RIGHT ANKLE TENDON INJURY ALLERGIES N.K.D.A. SURGICAL HISTORY C SECTION 2000 FAMILY HISTORY FATHER: ALIVE 83 YRS MOTHER: ALIVE 77 YRS, HYPERTENSION, DIABETES SIBLINGS: ALIVE SON(S): ALIVE 19 YRS, AUTISM 1 SON(S) . SOCIAL HISTORY GENERAL: TOBACCO USE ARE YOU A:FORMER SMOKER HIV / HEP-C SCREENING HIV TEST OFFERED TO PATIENT:YES DATE OFFERED:04/22/2019 TEST ACCEPTED:NO REASON:PATIENT DECLINED BROCHURE PROVIDED TO PATIENTNO OTHERS AT HOME: SPOUSE, CHILD. HOUSING: OWNS HOME. EDUCATION LEVEL OF EDUCATION:HIGH SCHOOL DIET: REGULAR. LANGUAGE LANGUAGES SPOKEN:BENGALI DOMESTIC VIOLENCE DO YOU FEEL SAFE IN YOUR ENVIRONMENT?YES RECREATIONAL DRUG USE DRUG USE?NO EXERCISE: DAILY, WALKS. LEARNING BARRIERS / SPECIAL NEEDS BARRIERS TO LEARNING?NO PAIN CLINIC PFS, CLERGY, PUBLIC HEALTH REFERRALS PFS REFERRAL NEEDED?NO CLERGY REFERRAL NEEDED?NO PUBLIC HEALTH REFERRAL NEEDED?NO WAS THE PROVIDER NOTIFIED OF ANY PERTINENT INFO? N/A HAS THE PATIENT BEEN EDUCATED REGARDING HIS/HER PLAN OF CARE?YES HAS THE PATIENT BEEN EDUCATED REGARDING PAIN, THE RISK FOR PAIN, THE IMPORTANCE OF EFFECTIVE PAIN MANAGEMENT, AND THE PAIN ASSESSMENT PROCESS?YES LATEX QUESTIONNAIRE LATEX ALLERGY : HAVE YOU EVER DEVELOPED ANY TYPE OF REACTION AFTER HANDLING LATEX PRODUCTS SUCH RUBBER GLOVES, CONDOMS, DIAPHRAGMS, BALLOONS, SOCKS, OR UNDERWEAR?NO LATEX ALLERGY : HAVE YOU EVER DEVELOPED ANY TYPE OF REACTION DURING OR AFTER DENTAL APPOINTMENT, VAGINAL/RECTAL EXAMINATION, SURGICAL PROCEDURE, OR ANY OTHER EXPOSURE?NO DATE ASKED : 02/18/2019 LATEX RISK : HAVE YOU EVER HAD ANY DIFFICULTY BREATHING OR HIVES AFTER EATING OR HANDLING ANY FRUITS, OR VEGETABLES; SUCH KIWI, BANANAS, STONE FRUITS, OR CHESTNUTSNO LATEX RISK : DO YOU HAVE A PREVIOUS PERSONAL HISTORY OF MORE THAN NINE SURGERIES, SPINA BIFIDA, OR REPEATED CATHERIZATIONS? NO LATEX RISK : ARE YOU FREQUENTLY EXPOSED TO LATEX PRODUCTS IN YOUR OCCUPATION?NO CAFFEINE CAFFEINE USE?YES HOW OFTEN AND HOW MUCH? 2 CUPS OF COFFEE PER, SODAS 2-3 12 OZ ADVANCE DIRECTIVE ADVANCE DIRECTIVE DISCUSSED WITH PATIENT:YES 02/18/18 PT DOES NOT HAVE ANY ADVANCED DIRECTIVES AND SHE DECLLINES INFORMATION ON HCP AT THIS TIME. AD GNOSTICIST GNOSTICIST NONE MARITAL STATUS: . ALCOHOL SCREENING DID YOU HAVE A DRINK CONTAINING ALCOHOL IN THE PAST YEAR?YES HOW MANY DRINKS DID YOU HAVE ON A TYPICAL DAY WHEN YOU WERE DRINKING IN THE PAST YEAR?1 OR 2 (0 POINTS) HOW OFTEN DID YOU HAVE A DRINK CONTAINING ALCOHOL IN THE PAST YEAR?MONTHLY OR LESS (1 POINT) POINTS1 INTERPRETATIONNEGATIVE OCCUPATION: [employer]. SEXUAL HX HAD SEX IN THE LAST 12 MONTHS (VAGINAL, ORAL, OR ANAL)?NO LMP:04/11/19 HAVE YOU EVER HAD AN STD?YES OTHER?NO HERPES?YES SYPHILIS?NO GC?NO CHLAMYDIA?NO AND LIVE AT HOME W/ SON AND SPOUSE REVIEWED WITH PATIENT 03/31/19 1418 NLJ. HOSPITALIZATION/MAJOR DIAGNOSTIC PROCEDURE C SECTION REVIEW OF SYSTEMS REVIEWED BY: PROVIDER: ELIEZER VÁSQUEZ-C . CONSTITUTIONAL: ANY CHANGE IN YOUR MEDICAL CONDITION? YES . CHILLS NO . FEVER NO . INFECTION: DO YOU HAVE NEW INFECTIONS? NO . DO YOU HAVE HISTORY OF MRSA? NO . MUSCULOSKELETAL: ANY NEW PATTERNS OF PAIN OR NUMBNESS? NO . GASTROENTEROLOGY: ANY NEW CHANGE IN BOWEL CONTROL? NO . GENITOURINARY: ANY NEW CHANGE IN BLADDER CONTROL? NO . IS THERE A CHANCE YOU COULD BE ? NO . HEMATOLOGY/LYMPH: DO YOU TAKE ANY BLOOD THINNERS? (FOR EXAMPLE- COUMADIN, PLAVIX, AGGRENOX, PLATEL, PRADAXA, OR XARELTO) NO . WHEN WAS YOUR LAST DOSE? DATE: TIME: . NEUROLOGY: HAVE YOU FALLEN IN THE PAST 12 MONTHS? NO . ANY NEW EXTREMITY NUMBNESS OR WEAKNESS? NO . CARDIOLOGY: DO YOU HAVE A PACEMAKER OR DEFIBRILLATOR? NO . RESPIRATORY: HAVE YOU BEEN SICK IN THE PAST WEEK? NO . FEVER NO . FLU LIKE SYMPTOMS? NO . COUGH NO . INTEGUMENTARY: DO YOU HAVE ANY RASHES OR OPEN SORES? NO . ALLERGIC/IMMUNO: ARE YOU ALLERGIC TO IV DYE? NO . ANY NEW ALLERGIES? NO . PSYCHIATRIC: DO YOU HAVE THOUGHTS OF HURTING YOURSELF OR SOMEONE ELSE? NO . ARE YOU ABUSED, NEGLECTED, OR IN AN UNSAFE ENVIRONMENT? NO . ENDOCRINOLOGY: ARE YOU DIABETIC? NO . OTHER: DO YOU NEED ANY PRESCRIPTIONS? NO . IF YES, PLEASE LIST: ____ . ANY NEW PROBLEMS WITH YOUR MEDICATIONS? YES . WHEN DID YOU LAST EAT? ____ . WHEN DID YOU LAST DRINK? ____ . WHAT DID YOU LAST DRINK? ____ . NAME OF PERSON DRIVING YOU HOME? ____ . DO YOU HAVE ANY OTHER QUESTIONS OR CONCERNS NO . VITAL SIGNS WT 161.9 LBS, HT 66.75 IN, BMI 25.54 INDEX, BP 115/56 MM HG, HR 88 /MIN, RR 18 /MIN, TEMP 97.8 F, OXYGEN SAT % 99%, NA INITIALS AW 1431, REVIEWED BY: THOMAS. EXAMINATION GENERAL EXAMINATION: GENERALNO ACUTE DISTRESS, WELL NOURISHED AND HYDRATED. PSYCHAPPROPRIATE MOOD AND AFFECT . LUNGS:CLEAR TO AUSCULTATION BILATERALLY, NO WHEEZES, RHONCHI, RALES. HEART:NO MURMURS, REGULAR RATE AND RHYTHM. ASSESSMENTS SPONDYLOSIS OF CERVICAL REGION WITHOUT MYELOPATHY OR RADICULOPATHY - M47.812 (PRIMARY) TREATMENT SPONDYLOSIS OF CERVICAL REGION WITHOUT MYELOPATHY OR RADICULOPATHY CLINICAL NOTES: 44 YEAR OLD FEMALE IN FOR CHRONIC PAIN FOLLOW UP. GIVEN THAT THE PATIENT HAS JUST RECENTLY STARTED ON TIZANIDINE AND IT SEEMS TO BE HELPFUL RECOMMEND CONTINUED USE OF TIZANIDINE WITH FOLLOW UP IN 2 MONTHS. PATIENT DOES ADMIT TO AN UPCOMING SURGERY FOR HER ACHILLES TENDON. PATIENT HAS EXPRESSED UNDERSTANDING OF AND WAS IN AGREEMENT WITH TX PLAN. GIVEN TIME TO ASK QUESTIONS AND EXPRESS CONCERNS. . DISPOSITION & COMMUNICATION FOLLOW UP 2 MONTHS (REASON: NECK PAIN) ELECTRONICALLY SIGNED BY THALIA GARAY ON 06/22/2019 AT 08:49 AM EST DISCLAIMER : THIS IS A VISIT SUMMARY EXTRACTED FROM THE [employer] CHART. IT IS NOT A COPY OF THE [employer] PROGRESS NOTE. SIA
== END ==
LOC: M PAIN 14:30
PROVIDERS: ATTEND Family Medicine
DX: M47.812 Spondylosis without myelopathy or radiculopathy, cervical region (principal); G89.29 Other chronic pain; G43.909 Migraine, unspecified, not intractable, without status migrainosus; Z87.891 Personal history of nicotine dependence; Z79.899 Other long term (current) drug therapy

== ENCOUNTER → 2019-11-11 | Outpatient (CLI) | payer OTHER, MEDICAID ==
[~2019-11-11] MED LIST changes: +AMIT10TA PO; +MELO15TA28 PO; +MULT-90 PO; +ORPH100T PO; +RIZA10TA2; +TIZA2TA PO; +ZONE1CAP PO
== END ==
LOC: M LABSMTC 13:28
PROVIDERS: ATTEND Anesthesiology
DX: Z01.818 Encounter for other preprocedural examination (principal); Z11.59 Encounter for screening for other viral diseases
CPT/HCPCS: C9803; U0003

== ENCOUNTER 2019-11-16 08:35 | Day surgery (SDC) | payer OTHER ==
[~2019-11-16] VITALS: Ht 172.7 cm; Wt 70.7 kg
[~2019-11-16 08:35] MED LIST changes: +LR 1,000 ML IV ONE; -RIZA10TA2; +ceFAZolin SOD 2 GM in IV 1 EA IV ONE
[2019-11-16] MEDS ORDERED: dexameTHASONE 10MG/1ML VIAL PRES.FREE (J1100 PER 1MG) ONE (08:36)
[2019-11-16] MEDS ORDERED: LIDOCAINE 1% MDV 20ML VIAL ONE (08:36)
[2019-11-16] MEDS ORDERED: ROPIvacaine 0.5% 30ML INJECTION (J2795 PER 1MG) ONE (08:36)
[2019-11-16] MEDS ORDERED: RIZA10TA2 (09:20)
[2019-11-16] MEDS ORDERED: fentaNYL 100 MCG/2 ML INJECTION (J3010) As Ordered ONE ×2 (09:50→11:45)
[2019-11-16] MEDS ORDERED: MIDAZOLAM INJ 2MG/2ML VIAL (J2250 PER 1MG) As Ordered ONE ×2 (09:50→11:45)
[2019-11-16] MEDS: fentaNYL 100 MCG/2 ML INJECTION (J3010) IV SCH ×2 (10:44→10:50)
[2019-11-16] MEDS: MIDAZOLAM INJ 2MG/2ML VIAL (J2250 PER 1MG) IV SCH ×2 (10:44→10:50)
[2019-11-16] MEDS ORDERED: ROCURONIUM BROMIDE 50 MG/5 ML VIAL As Ordered ONE (11:45)
[2019-11-16] MEDS ORDERED: LIDOCAINE 2% 100MG/5ML SDV (FOR ANES.) As Ordered ONE (11:45)
[2019-11-16] MEDS ORDERED: propofoL 200 MG/20 ML VIAL As Ordered ONE (11:45)
[2019-11-16] MEDS ORDERED: dexameTHASONE 4 MG/ML 1ML VIAL (J1100 PER 1MG) As Ordered ONE (11:45)
[2019-11-16] MEDS ORDERED: ONDANSETRON 4MG/2ML VIAL As Ordered ONE (11:45)
[2019-11-16] MEDS ORDERED: SUGAMMADEX SODIUM 500 MG/5 ML VIAL (BRIDION) As Ordered ONE (11:45)
[2019-11-16] MEDS ORDERED: KETOROLAC 60MG 2ML VIAL As Ordered ONE (12:32)
[2019-11-16] MEDS ORDERED: ONDANSETRON 4MG/2ML VIAL IV PRN (13:45)
[2019-11-16] MEDS ORDERED: oxyCODONE 5MG TAB PO PRN (13:45)
[2019-11-16] MEDS ORDERED: LR 1,000 ML IV SCH ×2 (13:45)
[2019-11-16] MEDS ORDERED: fentaNYL 100 MCG/2 ML INJECTION (J3010) IV PRN (13:45)
[2019-11-16 14:13] VITALS: BP 126/60
--- NOTE | 2019-11-16 23:31 | REP ---
C-ARM VIEW RIGHT CALCANEUS: Single lateral C-arm view of the right calcaneus is performed. Fluoroscopy time 3 seconds. Electronically Signed by Geo Marks MD 11/18/2019 09:12 A
--- NOTE | 2019-11-22 17:37 | RO ---
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 PROCEDURE: 1. Right Achilles debridement and repair. 2. Right calcaneal exostectomy. 3. Use of the mini C-arm. SURGEON: Erma Bill MD WEATHERIZATION COORDINATOR: JED Coley ANESTHESIA: General endotracheal and popliteal nerve block. SPECIMENS: Tendinotic Achilles tendon tissue. ESTIMATED BLOOD LOSS: 25 mL. COMPLICATIONS: None. CONDITION: Stable to recovery. INDICATIONS: Lilly Altman is a 44-year-old female who has had longstanding pain due to severe right midsubstance Achilles tendinosis. She has failed conservative measures. Risks and benefits of surgery were discussed with the patient in detail and include, but are not limited to, infection, damage to nerves and blood vessels, continued pain and stiffness, need for additional procedures. Informed consent was obtained in the office. DESCRIPTION OF PROCEDURE: The patient was met in the preoperative holding area where her right lower extremity was marked as the correct operative site. She underwent a popliteal nerve block by the anesthesia team. She was taken to the operating room where after induction of anesthesia, she was placed in the prone position. Bony prominences were well padded. A well-padded tourniquet had been placed on the right upper thigh. She received antibiotics within 60 minutes prior to incision. The right lower extremity was prepped and draped in the normal sterile fashion. An official time-out was held where the correct patient, operative side, and operative procedure were verified. Patient's MRI was displayed in the operating room. Leg was exsanguinated and tourniquet was inflated to 250 mmHg. An incision was made directly midline over the Achilles tendon. The peritenon was incised. Care was taken throughout the case to protect the sural nerve laterally. There was significant tendinosis, which extended past the musculotendinous junction almost the entire length of the Achilles down to the insertion. This was thoroughly debrided. There was also a Anna's deformity, which was removed with a 38 saw. I used a power rasp to contour the corners. Following this, copious irrigation was performed. An Arthrex 5.5 Corkscrew was inserted to reattach the Achilles insertion using a Michael-Arnav type suture. This had good approximation. I then closed the Achilles split using a running #0 Vicryl. Copious irrigation was again performed. The peritenon was then closed with a running #2-0 Vicryl. Skin was closed with #3-0 Vicryl and #3-0 nylon. A sterile dressing was applied followed by a well-padded splint. JED Coley was present for the entire case and was essential for soft tissue retraction, suture anchor placement and closure, and overall decrease of tourniquet time. PLAN: The patient will be non-weightbearing in the right lower extremity for 6 weeks. She will be in a cast for 3 weeks and then at this time can transition to a boot and start gentle range of motion up to neutral.
== END 2019-11-16 15:19 | disposition home or self-care (01) ==
LOC: M SDC 08:35
PROVIDERS: ATTEND Orthopaedic Surgery
DX: M76.61 Achilles tendinitis, right leg (principal); G43.909 Migraine, unspecified, not intractable, without status migrainosus; Z79.899 Other long term (current) drug therapy
CPT/HCPCS: 27654; 28100; 64445; 76000; 81025; 88304; C1713; J0690; J1100; J1885; J2250; J2405; J2795; J3010

== ENCOUNTER → 2020-01-27 | Outpatient (REF) | payer OTHER ==
[~2020-01-27] MED LIST changes: -LR 1,000 ML IV ONE; +RIZA10TA2; -ceFAZolin SOD 2 GM in IV 1 EA IV ONE
[2020-01-27 17:38] LABS: BASO % 0.6 % (0.0-1.0); EOS # 0.1 10^3/uL (0.0-0.5); EOS % 1.6 % (0.0-3.0); HEMATOCRIT 38.7 % (36.0-47.0); LYMPH # 2.1 10^3/uL (1.5-5.0); LYMPH % 31.1 % (24.0-44.0); MEAN CORPUSCULAR HEMOGLOBIN 30.4 pg (27.0-33.0); MEAN CORPUSCULAR HGB CONC 33.6 g/dl (32.0-36.5); MEAN CORPUSCULAR VOLUME 90.4 fl (80.0-96.0); MONO # 0.5 10^3/uL (0.0-0.8); MONO % 7.2 % (0.0-5.0); NEUTROPHILS % 59.2 % (36.0-66.0); PLATELET COUNT, AUTOMATED 212 10^3/uL (150-450); RED BLOOD COUNT 4.28 10^6/uL (4.00-5.40); WHITE BLOOD COUNT 6.8 10^3/uL (4.0-10.0)
[2020-01-27 18:12] LABS: ERYTHROCYTE SEDIMENTATION RATE 6 mm/hr (0-20)
== END ==
LOC: M LABDRWAD 16:32
PROVIDERS: ATTEND Orthopaedic Surgery
DX: Z47.89 Encounter for other orthopedic aftercare (principal)

== ENCOUNTER → 2020-03-29 | Outpatient (CLI) | payer SELFPAY | LOC: M LABSMTC 11:24 | PROVIDERS: ATTEND Pediatrics | DX: Z20.828 Contact with and (suspected) exposure to other viral communicable diseases (principal) ==

== ENCOUNTER → 2020-09-28 | Outpatient (CLI) | payer OTHER, MEDICAID ==
[~2020-09-28] MED LIST changes: -AMIT10TA PO; +AMIT10TA7 PO
[2020-09-28 17:27] LABS: ALBUMIN 3.6 GM/DL (3.2-5.2); ALT/SGPT 26 U/L (12-78); BILIRUBIN,TOTAL 0.3 MG/DL (0.2-1.0); BLOOD UREA NITROGEN 15 MG/DL (7-18); CALCIUM LEVEL 8.9 MG/DL (8.5-10.1); CARBON DIOXIDE LEVEL 27 MEQ/L (21-32); CHLORIDE LEVEL 109 MEQ/L (98-107); CHOLESTEROL LEVEL 222 MG/DL (<200); CREATININE FOR GFR 0.93 MG/DL (0.55-1.30); FREE T4 1.14 NG/DL (0.76-1.46); GLOMERULAR FILTRATION RATE > 60.0 (>58); GLUCOSE, FASTING 88 MG/DL (70-100); HDL CHOLESTEROL 74 MG/DL (>40); LDL CHOLESTEROL 127 MG/DL (<100); NON-HDL-C 148 MG/DL; SODIUM LEVEL 141 MEQ/L (136-145); TOTAL PROTEIN 7.1 GM/DL (6.4-8.2); TRIGLYCERIDES LEVEL 104 MG/DL (<150)
[2020-09-28 17:54] LABS: HEMOGLOBIN A1c 4.7 %
== END ==
LOC: M WUC 11:27
PROVIDERS: ATTEND Nurse Practitioner Family
DX: Z13.228 Encounter for screening for other metabolic disorders (principal); E78.5 Hyperlipidemia, unspecified

== ENCOUNTER → 2020-11-15 | Outpatient (CLI) | payer OTHER ==
--- NOTE | 2020-11-15 11:17 | REP ---
INDICATION: LOC SWELLING MASS LUMP IN NECK. COMPARISON: Comparison is made with images from a size MRI study of the cervical spine done November 18, 2008.. TECHNIQUE: A metallic BB is affixed to the skin at the site of the palpable lump. Helical scanning is acquired without IV contrast. 3 mm axial images re-formatted. Coronal and sagittal MPR images are included. FINDINGS: The opaque BB affixed to the skin at the site of the palpable lump is seen on the left just above the level of the glottis. The submandibular and parotid glands are normal, symmetric, and unchanged from the 2009 MRI cervical spine appearance. The opaque BB is affixed to the skin at the level of the inferior most extent of the left parotid gland but no parotid mass lesion is observed on either side. There are anterior cervical lymph nodes present bilaterally and on the left, this is also at the level of the opaque BB. This node measures 6 mm in short axis dimension. A 2nd lymph node just above this measures 5 mm in short axis dimension. There are similar sized right anterior cervical lymph nodes. These lymph nodes do not appear to have changed significantly since the 2009 study. No other neck mass or adenopathy is appreciated. Thyroid lobes are normal and symmetric. No glottic or subglottic airway lesion is seen. Tonsillar and peritonsillar soft tissues are unremarkable. The paranasal sinuses are clear. No intraorbital abnormality is appreciated. The visualized intracranial structures are unremarkable. The lung apices are clear. No bony destructive lesion is seen. IMPRESSION: No neck mass or adenopathy seen. Clinical follow-up is advised. Stable normal appearing anterior cervical lymph nodes are seen bilaterally. <Electronically signed by Tima Bryan > 11/15/20 0059
== END ==
LOC: M RAD 10:39
PROVIDERS: ATTEND Physician Assistant Medical
DX: R22.1 Localized swelling, mass and lump, neck (principal)

== ENCOUNTER → 2022-02-22 | Outpatient (CLI) | payer OTHER ==
[2022-02-22 12:34] LABS: BASO % 0.5 % (0.0-1.0); EOS # 0.1 10^3/uL (0.0-0.5); EOS % 1.3 % (0.0-3.0); LYMPH # 1.7 10^3/uL (1.5-5.0); LYMPH % 31.2 % (24.0-44.0); MEAN CORPUSCULAR HEMOGLOBIN 29.2 pg (27.0-33.0); MEAN CORPUSCULAR HGB CONC 32.6 g/dl (32.0-36.5); MEAN CORPUSCULAR VOLUME 89.8 fl (80.0-96.0); MONO # 0.4 10^3/uL (0.0-0.8); MONO % 7.6 % (2.0-8.0); NEUTROPHILS # 3.3 10^3/uL (1.5-8.5); PLATELET COUNT, AUTOMATED 192 10^3/uL (150-450); RED BLOOD COUNT 4.79 10^6/uL (4.00-5.40); WHITE BLOOD COUNT 5.5 10^3/uL (4.0-10.0)
[2022-02-22 13:14] LABS: ERYTHROCYTE SEDIMENTATION RATE 6 mm/hr (0-20)
[2022-02-22 13:31] LABS: RHEUMATOID FACTOR QUANT < 10.0 IU/ML (<15.0)
[2022-02-22 14:18] LABS: TOTAL 25(OH) VITAMIN D 20.1 NG/ML (30.0-100.0); VITAMIN B12 LEVEL 308 PG/ML (247-911)
[2022-02-23 13:07] LABS: ANTINUCLEAR ANTIBODIES DIRECT Negative (Negative)
[2022-02-24 08:08] LABS: FOLATE 9.3 ng/mL (>3.0)
== END ==
LOC: M WUC 09:38
PROVIDERS: ATTEND Psychiatry & Neurology Neurology
DX: R51.9 Headache, unspecified (principal)

== ENCOUNTER 2022-08-21 16:00 | Emergency (ER) | payer OTHER ==
[~2022-08-21] VITALS: Ht 172.7 cm; Wt 72.7 kg
[~2022-08-21 16:00] MED LIST changes: -ORPH100T PO; +ORPH1TAB6 PO
[2022-08-21 16:45] VITALS: BP 115/64
== END 2022-08-21 16:58 | disposition home or self-care (01) ==
LOC: M ED 16:00
DX: S43.402A Unspecified sprain of left shoulder joint, initial encounter (principal); W01.0XXA Fall on same level from slipping, tripping and stumbling without subsequent striking against object, initial encounter; Y92.511 Restaurant or cafe as the place of occurrence of the external cause; Y93.01 Activity, walking, marching and hiking; Y99.0 Civilian activity done for income or pay; Z87.891 Personal history of nicotine dependence; Z79.899 Other long term (current) drug therapy

== ENCOUNTER → 2022-10-10 | Outpatient (CLI) | payer OTHER | LOC: M RAD 10:29 | PROVIDERS: ATTEND Orthopaedic Surgery | DX: M75.82 Other shoulder lesions, left shoulder (principal); M25.412 Effusion, left shoulder; M25.512 Pain in left shoulder; M67.814 Other specified disorders of tendon, left shoulder ==

== ENCOUNTER → 2023-01-29 | Outpatient (REF) | payer OTHER ==
[2023-01-29 20:27] LABS: BASO % 0.4 % (0.0-1.0); EOS # 0.1 10^3/uL (0.0-0.5); EOS % 1.9 % (0.0-3.0); HEMATOCRIT 42.4 % (36.0-47.0); HEMOGLOBIN 14.3 g/dl (12.0-15.5); LYMPH # 2.2 10^3/uL (1.5-5.0); LYMPH % 29.8 % (24.0-44.0); MEAN CORPUSCULAR HEMOGLOBIN 29.7 pg (27.0-33.0); MEAN CORPUSCULAR HGB CONC 33.7 g/dl (32.0-36.5); MEAN CORPUSCULAR VOLUME 88.1 fl (80.0-96.0); MONO # 0.6 10^3/uL (0.0-0.8); MONO % 8.8 % (2.0-8.0); NEUTROPHILS # 4.3 10^3/uL (1.5-8.5); NEUTROPHILS % 58.8 % (36.0-66.0); PLATELET COUNT, AUTOMATED 186 10^3/uL (150-450); RED BLOOD COUNT 4.81 10^6/uL (4.00-5.40); WHITE BLOOD COUNT 7.3 10^3/uL (4.0-10.0)
[2023-01-29 20:52] LABS: ALBUMIN 3.8 G/DL (3.2-5.2); ALKALINE PHOSPHATASE 59 U/L (46-116); ALT/SGPT 26 U/L (7.0-40); AST/SGOT 22 U/L (<34); BILIRUBIN,TOTAL 0.6 MG/DL (0.3-1.2); BLOOD UREA NITROGEN 12 MG/DL (9-23); CALCIUM LEVEL 9.2 MG/DL (8.5-10.1); CARBON DIOXIDE LEVEL 28 MMOL/L (20-31); CHLORIDE LEVEL 106 MMOL/L (98-107); CREATININE FOR GFR 0.82 MG/DL (0.55-1.30); GLOMERULAR FILTRATION RATE > 60.0 (>58); GLUCOSE, FASTING 78 MG/DL (60-100); POTASSIUM SERUM 3.9 MMOL/L (3.5-5.1); SODIUM LEVEL 140 MMOL/L (136-145); TOTAL PROTEIN 6.8 G/DL (5.7-8.2)
[2023-01-29 20:53] LABS: TOTAL 25(OH) VITAMIN D 37.4 NG/ML (20.0-100.0)
[2023-01-29 20:54] LABS: FOLATE 22.3 NG/ML (>5.4); VITAMIN B12 LEVEL 319 PG/ML (211-911)
== END ==
LOC: M LAB REF 19:48
PROVIDERS: ATTEND Psychiatry & Neurology Neurology
DX: R51.9 Headache, unspecified (principal); E55.9 Vitamin D deficiency, unspecified; D51.9 Vitamin B12 deficiency anemia, unspecified

== ENCOUNTER → 2023-06-05 | Outpatient (REF) | payer OTHER, MEDICAID ==
[2023-06-05 14:42] LABS: ALBUMIN 3.6 G/DL (3.2-5.2); ALKALINE PHOSPHATASE 68 U/L (46-116); ALT/SGPT 22 U/L (7.0-40); AST/SGOT 19 U/L (<34); BILIRUBIN,TOTAL 0.4 MG/DL (0.3-1.2); BLOOD UREA NITROGEN 13 MG/DL (9-23); CALCIUM LEVEL 9.1 MG/DL (8.5-10.1); CARBON DIOXIDE LEVEL 27 MMOL/L (20-31); CHLORIDE LEVEL 110 MMOL/L (98-107); CHOLESTEROL LEVEL 203 MG/DL (<200); CREATININE FOR GFR 0.87 MG/DL (0.55-1.30); GLOMERULAR FILTRATION RATE > 60.0 (>51); GLUCOSE, FASTING 88 MG/DL (60-100); HDL CHOLESTEROL 57.9 MG/DL (>40); LDL CHOLESTEROL 121.5 MG/DL (<100); NON-HDL-C 145.1 MG/DL; POTASSIUM SERUM 4.1 MMOL/L (3.5-5.1); SODIUM LEVEL 138 MMOL/L (136-145); TOTAL PROTEIN 6.8 G/DL (5.7-8.2); TRIGLYCERIDES LEVEL 118 MG/DL (<150)
[2023-06-05 14:45] LABS: THYROID STIMULATING HORMONE 1.552 uIU/ML (0.55-4.78)
[2023-06-05 14:46] LABS: FREE T4 0.99 NG/DL (0.89-1.76)
== END ==
LOC: M SFHCADAM 08:14
PROVIDERS: ATTEND Nurse Practitioner Family
DX: E78.5 Hyperlipidemia, unspecified (principal)

== ENCOUNTER → 2024-03-02 | Outpatient (CLI) | payer OTHER | LOC: M WHC 13:19 | PROVIDERS: ATTEND Nurse Practitioner Family | DX: Z12.31 Encounter for screening mammogram for malignant neoplasm of breast (principal); R92.333 Mammographic heterogeneous density, bilateral breasts ==

== ENCOUNTER → 2024-03-02 | Outpatient (REF) | payer OTHER, MEDICAID ==
[2024-03-04 16:22] LABS: HPV APTIMA Not Detected (Not Detected)
== END ==
LOC: M SFHCWAGY 17:59
PROVIDERS: ATTEND Nurse Practitioner Family
DX: Z12.4 Encounter for screening for malignant neoplasm of cervix (principal); R87.612 Low grade squamous intraepithelial lesion on cytologic smear of cervix (LGSIL)

== ENCOUNTER → 2024-06-09 | Outpatient (CLI) | payer OTHER, MEDICAID ==
[2024-06-09 10:08] LABS: BASO % 0.5 % (0.0-1.0); EOS # 0.1 10^3/uL (0.0-0.5); EOS % 1.6 % (0.0-3.0); HEMATOCRIT 42.2 % (36.0-47.0); HEMOGLOBIN 14.4 g/dl (12.0-15.5); LYMPH # 1.5 10^3/uL (1.5-5.0); LYMPH % 26.8 % (24.0-44.0); MEAN CORPUSCULAR HEMOGLOBIN 30.1 pg (27.0-33.0); MEAN CORPUSCULAR HGB CONC 34.1 g/dl (32.0-36.5); MEAN CORPUSCULAR VOLUME 88.3 fl (80.0-96.0); MONO # 0.5 10^3/uL (0.0-0.8); MONO % 8.2 % (2.0-8.0); NEUTROPHILS # 3.4 10^3/uL (1.5-8.5); NEUTROPHILS % 62.5 % (36.0-66.0); PLATELET COUNT, AUTOMATED 168 10^3/uL (150-450); RED BLOOD COUNT 4.78 10^6/uL (4.00-5.40); WHITE BLOOD COUNT 5.5 10^3/uL (4.0-10.0)
[2024-06-09 10:24] LABS: ALBUMIN 3.7 G/DL (3.2-5.2); ALKALINE PHOSPHATASE 68 U/L (35-104); ALT/SGPT 29 U/L (7.0-40); AST/SGOT 23 U/L (<34); BILIRUBIN,TOTAL 0.7 MG/DL (0.3-1.2); BLOOD UREA NITROGEN 16 MG/DL (9-23); CALCIUM LEVEL 9.5 MG/DL (8.5-10.1); CARBON DIOXIDE LEVEL 29 MMOL/L (20-31); CHLORIDE LEVEL 106 MMOL/L (98-107); CHOLESTEROL LEVEL 220 MG/DL (<200); CHOLESTEROL RISK RATIO 3.13 (<5); CREATININE FOR GFR 0.87 MG/DL (0.55-1.30); GLOMERULAR FILTRATION RATE > 60.0 (>51); GLUCOSE, FASTING 76 MG/DL (60-100); HDL CHOLESTEROL 70.2 MG/DL (>40); LDL CHOLESTEROL 137.8 MG/DL (<100); NON-HDL-C 149.8 MG/DL; POTASSIUM SERUM 4.3 MMOL/L (3.5-5.1); SODIUM LEVEL 144 MMOL/L (136-145); TOTAL PROTEIN 6.8 G/DL (5.7-8.2); TRIGLYCERIDES LEVEL 60 MG/DL (<150)
== END ==
LOC: M WUC 08:15
PROVIDERS: ATTEND Nurse Practitioner Family
DX: Z00.00 Encounter for general adult medical examination without abnormal findings (principal); E78.5 Hyperlipidemia, unspecified

== ENCOUNTER → 2025-01-06 | Outpatient (CLI) | payer OTHER ==
[~2025-01-06] MED LIST changes: +AMIT10TA11 PO; -AMIT10TA7 PO
[2025-01-06 13:31] LABS: ALT/SGPT 28 U/L (7.0-40); AST/SGOT 25 U/L (<34); CALCIUM LEVEL 9.8 MG/DL (8.5-10.1); CARBON DIOXIDE LEVEL 28 MMOL/L (20-31); CHLORIDE LEVEL 104 MMOL/L (98-107); CREATININE FOR GFR 0.83 MG/DL (0.55-1.30); GLOMERULAR FILTRATION RATE 85.3 (>51); POTASSIUM SERUM 4.4 MMOL/L (3.5-5.1); SODIUM LEVEL 143 MMOL/L (136-145)
[2025-01-06 13:36] LABS: HCG, SERUM QUALITATIVE NEGATIVE (NEGATIVE)
[2025-01-06 13:39] LABS: BASO # 0.0 10^3/uL (0.0-0.2); BASO % 0.6 % (0.0-1.0); EOS # 0.1 10^3/uL (0.0-0.5); EOS % 1.3 % (0.0-3.0); LYMPH # 1.9 10^3/uL (1.5-5.0); LYMPH % 27.3 % (24.0-44.0); MONO # 0.7 10^3/uL (0.0-0.8); MONO % 10.0 % (2.0-8.0); NEUTROPHILS # 4.2 10^3/uL (1.5-8.5); NEUTROPHILS % 60.5 % (36.0-66.0); PLATELET COUNT, AUTOMATED 171 10^3/uL (150-450)
== END ==
LOC: M PLAIMG 11:01
PROVIDERS: ATTEND Nurse Practitioner Family
DX: R10.84 Generalized abdominal pain (principal)

== ENCOUNTER → 2025-01-07 | Outpatient (CLI) | payer OTHER | LOC: M WUC 11:06 | PROVIDERS: ATTEND Nurse Practitioner Family | DX: R10.84 Generalized abdominal pain (principal) ==

== ENCOUNTER → 2025-01-12 | Outpatient (CLI) | payer OTHER ==
[~2025-01-12] MED LIST changes: +GASTROGRAFIN SOLUTION 30 ML As Ordered ONE; +ISOVUE-370 76% 100 ML VIAL As Ordered ONE
== END ==
LOC: M RAD 08:01
PROVIDERS: ATTEND Nurse Practitioner Family
DX: R19.09 Other intra-abdominal and pelvic swelling, mass and lump (principal); J98.11 Atelectasis; R93.3 Abnormal findings on diagnostic imaging of other parts of digestive tract; K42.9 Umbilical hernia without obstruction or gangrene
CPT/HCPCS: 74177; Q9963; Q9967

== ENCOUNTER → 2025-01-13 | Outpatient (CLI) | payer OTHER ==
[~2025-01-13] MED LIST changes: -GASTROGRAFIN SOLUTION 30 ML As Ordered ONE; -ISOVUE-370 76% 100 ML VIAL As Ordered ONE
[2025-01-13 16:29] LABS: CA 125 17.0 U/ML (<35); CA19-9 TUMOR MARKER,CARBOHYDRA 20.4 U/ML (<35.0)
== END ==
LOC: M PLALAB 12:50
PROVIDERS: ATTEND Specialist
DX: N83.8 Other noninflammatory disorders of ovary, fallopian tube and broad ligament (principal)

== ENCOUNTER 2025-02-04 13:23 | Day surgery (SDC) | payer OTHER ==
[~2025-02-04] VITALS: Ht 172.7 cm; Wt 72.6 kg
[~2025-02-04 13:23] MED LIST changes: +CYAN-1 PO; +ERGO500029 PO; +FREM225A SC; +MELO7.5T35 PO; +RHUB4TAB PO; -RIZA10TA2; +RIZA10TA2 PO
[2025-02-04] MEDS ORDERED: LR 1,000 ML IV SCH ×2 (13:50→16:20)
[2025-02-04 13:58] LABS: PLATELET COUNT, AUTOMATED 172 10^3/uL (150-450)
[2025-02-04] MEDS ORDERED: LIDOCAINE 2% 100 MG/5 ML SDV (FOR ANES.) As Ordered ONE (14:03)
[2025-02-04] MEDS ORDERED: ROCURONIUM BROMIDE 50MG/5ML VIAL As Ordered ONE (14:03)
[2025-02-04] MEDS ORDERED: MIDAZOLAM INJ 2 MG/2 ML VIAL As Ordered ONE (14:04)
[2025-02-04] MEDS ORDERED: LACRILUBE (AKWA TEARS) OPHTH OINT 3.5 GM As Ordered ONE (14:57)
[2025-02-04] MEDS ORDERED: ACETAMINOPHEN 1000MG/100ML IV BAG As Ordered ONE (15:01)
[2025-02-04] MEDS ORDERED: SUGAMMADEX SODIUM 500 MG/5 ML VIAL As Ordered ONE (15:02)
[2025-02-04] MEDS ORDERED: ONDANSETRON 4MG 2ML VIAL As Ordered ONE (15:02)
[2025-02-04] MEDS ORDERED: dexAMETHasone 4 MG/ML 1 ML VIAL As Ordered ONE (15:02)
[2025-02-04] MEDS ORDERED: KETOROLAC 30 MG/ML 1 ML VIAL As Ordered ONE (15:02)
[2025-02-04] MEDS ORDERED: DESFLURANE 240 ML INHALANT As Ordered ONE (15:41)
[2025-02-04] MEDS: ONDANSETRON 4MG 2ML VIAL IV PRN (16:29)
[2025-02-04] MEDS: HYDROMORPHONE HCL 0.5 MG/0.5 ML SYRINGE IV PRN (16:30)
[2025-02-04 17:51] VITALS: BP 139/70; TEMP 97.1; O2SAT 100
== END 2025-02-04 18:25 | disposition home or self-care (01) ==
LOC: M SDC 13:23
PROVIDERS: ATTEND Specialist
DX: D27.1 Benign neoplasm of left ovary (principal); K21.9 Gastro-esophageal reflux disease without esophagitis; Z79.899 Other long term (current) drug therapy; G47.00 Insomnia, unspecified; G43.909 Migraine, unspecified, not intractable, without status migrainosus
CPT/HCPCS: 36415; 58661; 81025; 85027; 86850; 86900; 86901; 88108; 88307; J0131; J0665; J1100; J1171; J1885; J2250; J2405; J3010; S2900

== ENCOUNTER → 2025-03-08 | Outpatient (CLI) | payer OTHER | LOC: M WHC 08:20 | PROVIDERS: ATTEND Nurse Practitioner Family | DX: Z12.31 Encounter for screening mammogram for malignant neoplasm of breast (principal) ==

== ENCOUNTER → 2025-03-08 | Outpatient (REF) | payer OTHER ==
[2025-03-10 12:56] LABS: HPV APTIMA Not Detected (Not Detected)
== END ==
LOC: M SFHCWAGY 10:44
PROVIDERS: ATTEND Nurse Practitioner Family
DX: Z11.51 Encounter for screening for human papillomavirus (HPV) (principal); R87.612 Low grade squamous intraepithelial lesion on cytologic smear of cervix (LGSIL)